=== PATIENT | male | born 1995 | race Two or more races ===

== ENCOUNTER 2019-02-19 20:10 | Emergency (ER) | payer BC, MEDICAID ==
[~2019-02-19] VITALS: Ht 185.4 cm; Wt 90.7 kg
[2019-02-19 20:10] VITALS: BP 166/106
--- NOTE | 2019-02-19 20:25 | NUR ---
PT REC'D MEDICATION ORDERED.
[2019-02-19] MEDS ORDERED: KETOROLAC TROMETHAMINE INJ 60 MG/2 ML VIAL IM ONE (20:30)
[2019-02-19] MEDS ORDERED: KETOROLAC TROMETHAMINE INJ 30 MG/ML VIAL ONE (21:20)
--- NOTE | 2019-02-19 21:35 | NUR ---
PT IS OK TO BOOK. Patient discharged in custody to [facility] in stable condition. Written and verbal after care instructions given. Patient verbalizes understanding of instruction. PT AMBULATED OUT WITH A STEADY GAIT. VSS. NAD NOTED. PT IS AA&O X 4. RESP ARE EVEN AND UNLABORED.
== END 2019-02-19 21:25 ==
LOC: ER 20:11
DX: F41.9 Anxiety disorder, unspecified (principal); G43.909 Migraine, unspecified, not intractable, without status migrainosus; I10 Essential (primary) hypertension; M32.9 Systemic lupus erythematosus, unspecified; Z88.5 Allergy status to narcotic agent; Z88.8 Allergy status to other drugs, medicaments and biological substances
CPT/HCPCS: 93005; 96372; 99283; J1885